=== PATIENT | male | born 1980 | race Asian ===

== ENCOUNTER 2018-03-17 07:29 | Day surgery (SDC) | payer OTHER ==
[~2018-03-17] VITALS: Ht 170.2 cm; Wt 63.5 kg
[2018-03-17 08:34] VITALS: BP 116/78
[2018-03-17 11:09] VITALS: BP 115/81
== END 2018-03-17 10:35 | disposition home or self-care (01) ==
LOC: EDSEX 07:29 → GI 07:29 → OR 10:30 → GI 10:35
PROVIDERS: Internal Medicine Gastroenterology
PROC: 0DJD8ZZ Inspection of Lower Intestinal Tract, Via Natural or Artificial Opening Endoscopic (ICD-10-PCS; principal; 2018-03-17 10:30)
DX: R10.32 Left lower quadrant pain (principal); K59.09 Other constipation; E11.9 Type 2 diabetes mellitus without complications; Z80.0 Family history of malignant neoplasm of digestive organs
CPT/HCPCS: 45378; J1200; J1610; J2250; J2310; J3010; J3490